=== PATIENT | female | born 1990 | race Caucasian/White ===

== ENCOUNTER 2021-01-28 14:41 | Emergency (ER) | payer OTHER, SELFPAY ==
[2021-01-28] VITALS (21 sets, daily range): BP systolic 115–150; BP diastolic 65–92; PULSE 84–103; RESP 15–28; TEMP 36.7; O2SAT 95–100
--- NOTE | 2021-01-28 14:50 | ECG_ITS ---
Measurements Intervals [place] Rate: 87 P: 36 [place]: 160 QRS: -1 QRSD: 113 T: 6 QT: 366 QTc: 441 Interpretive Statements SINUS RHYTHM INCOMPLETE RIGHT BUNDLE BRANCH BLOCK VOLTAGE CRITERIA FOR LVH BORDERLINE T WAVE ABNORMALITY- ANTERIOR LEADS BASELINE ARTIFACT- I, II, III, AVR, AVL, AVF BORDERLINE ECG Electronically Signed On 01-28-2021 15:46:57 CDT by Fermin West D.O.
--- NOTE | 2021-01-28 15:17 | ED.GENADULT ---
HPI - General Adult General Chief complaint: Dizziness Stated complaint: near syncopy, 6 weeks Time Seen by Provider: 01/28/21 14:46 Source: patient History of Present Illness HPI narrative: Patient is a 30 y/o female complaining of mild dizziness starting about 9:00 AM. She describes her dizziness as a light-headedness sensation. She denies any room spinning. There is no alleviating or exacerbating factor. She has some headache. She states that her BP was 160s/100s earlier. Of note, she is 6 week . Her LMP was 12/09. Related Data Home Medications Medication Instructions Recorded Confirmed No Home Medications 01/28/21 01/28/21 Allergies Allergy/AdvReac Type Severity Reaction Status Date / Time cefaclor [From [facility]] Allergy Rash Verified 01/28/21 14:49 Review of Systems Constitutional: Constitutional: Denies chills, Denies fever(s), Denies headache(s) and Denies weakness Eyes: Eyes: Denies blurry vision ENT: Denies headache(s) and Denies neck pain Cardiovascular: Cardiovascular: Denies chest pain and Denies dyspnea Respiratory: Respiratory: Denies cough and Denies dyspnea Gastrointestinal: Gastrointestinal: Denies abdominal pain, Denies diarrhea, Denies nausea and Denies vomiting Genitourinary: Genitourinary: Denies hematuria and Denies dysuria Musculoskeletal: Musculoskeletal: Denies back pain and Denies neck pain Neurologic: Reports dizziness, Denies headache(s) and Denies weakness Exam Const: General: no acute distress and well developed Orientation/consciousness: oriented to person, oriented to place, oriented to time and patient oriented x3 HENMT: Head: normocephalic Ears: external ears normal General nose exam: Normal external nose present Eyes: General: appearance normal, both eyes and all related structures Conjunctivae: conjunctivae normal Neck: Neck: normal visual inspection and full ROM Chest: Chest palpation & inspection: normal inspection of the chest and no tenderness Resp: Effort & Inspection: normal respiratory effort Auscultation: clear to auscultation bilaterally Cardio: Rate: regular rate Rhythm: regular rhythm GI: GI Palp: No abdominal tenderness and Yes Soft to palpation Skin: General skin exam: normal color and turgor normal Neuro: General: oriented to person, oriented to place, oriented to time and patient oriented x3 Cognition (Neuro): normal cognition Extrem: General: normal to inspection, full ROM and no pedal edema Psych: Appearance: grossly normal Mental Status: mental status grossly normal Affect: normal affect Course Consultations Consultation #1: Discussed with Dr. Burks, who agrees with plan for discharge. Date: 01/28/21 Time: 18:28 Vital Signs Vital signs: Vital Signs Temperature 36.7 C 01/28/21 14:44 Pulse Rate 94 01/28/21 14:44 Respiratory Rate 18 01/28/21 14:44 Blood Pressure 150/87 H 01/28/21 14:44 Pulse Oximetry 98 01/28/21 14:44 Temperature 36.7 C 01/28/21 14:44 Pulse Rate 89 01/28/21 18:36 Respiratory Rate 19 01/28/21 18:36 Blood Pressure 137/92 H 01/28/21 19:01 Pulse Oximetry 95 01/28/21 18:46 Medical Decision Making Vital Signs Vital Signs: Vital Signs Temperature 36.7 C 01/28/21 14:44 Pulse Rate 94 01/28/21 14:44 Respiratory Rate 18 01/28/21 14:44 Blood Pressure 150/87 H 01/28/21 14:44 Pulse Oximetry 98 01/28/21 14:44 Temperature 36.7 C 01/28/21 14:44 Pulse Rate 89 01/28/21 18:36 Respiratory Rate 19 01/28/21 18:36 Blood Pressure 137/92 H 01/28/21 19:01 Pulse Oximetry 95 01/28/21 18:46 Lab Data Result diagrams: 01/28/21 15:15 01/28/21 15:15 Labs: Lab Results 01/28/21 01/28/21 01/28/21 Range/Units 15:15 15:15 16:39 WBC 11.1 H (4.5-10.0) K/mm3 RBC 4.40 (4.2-5.4) M/mm3 Hgb 12.5 (12.0-15.0) g/dL Hct 38.6 (37.0-47.0) % MCV 87.7 (80-100) fl MCH 28.4 (26-34) pg MCHC 32.4
[2021-01-28 15:24] LABS: Basophils Absolute Auto 0.1 K/mm3 (0.0-0.1); Basophils Percent Auto 0.5 % (0.2-1.2); Eosinophils Absolute Auto 0.2 K/mm3 (0-0.3); Eosinophils Percent Auto 1.4 % (0-4.4); Hematocrit 38.6 % (37.0-47.0); Hemoglobin 12.5 g/dL (12.0-15.0); Immature Granulocyte Absolute 0.06 K/mm3 (0.00-0.031); Immature Granulocyte Percent A 0.5 % (0-0.5); Lymphocytes Absolute Auto 2.36 K/mm3 (0.9-3.2); Lymphocytes Percent Auto 21.3 % (18.3-44.2); Mean Corpuscular HGB Conc 32.4 g/dl (32-36); Mean Corpuscular Hemoglobin 28.4 pg (26-34); Mean Corpuscular Volume 87.7 fl (80-100); Mean Platelet Volume 9.9 fl (7.4-10.4); Monocytes Absolute Auto 0.7 K/mm3 (0.1-0.6); Monocytes Percent Auto 6.7 % (2.6-8.5); Neutrophils Absolute Auto 7.7 K/mm3 (1.3-6.7); Neutrophils Percent Auto 69.6 % (45.5-73.1); Platelet Count Result 305 k/mm3 (150-375); Red Cell Distribution Width 15.3 % (11.5-14.5); White Blood Count 11.1 K/mm3 (4.5-10.0)
[2021-01-28 15:45] LABS: Alanine Aminotransferase 21 U/L (4-35); Albumin Level 3.9 g/dL (3.5-5.1); Alkaline Phosphatase 52 U/L (38-126); Anion Gap 8 mmol/L (8-16); Aspartate Amino Transferase 23 U/L (14-36); Bilirubin,Total 0.3 mg/dL (0.2-1.3); Blood Urea Nitrogen 12 mg/dL (7-17); Calcium 8.7 mg/dL (8.4-10.2); Carbon Dioxide 23 mmol/L (22-30); Chloride 104 mmol/L (98-107); Estimated CRCL calculation 182 ml/min; Estimated Glomerular Filt Rate > 60; Glucose 101 mg/dL (65-110); Potassium 3.7 mmol/L (3.4-5.0); Sodium 135 mmol/L (137-145)
[2021-01-28 16:54] LABS: Add Urine Microscopic? YES; Appearance Urine Cloudy (Clear); Bilirubin Urine Negative (Negative); Blood Urine Negative (Negative); Color Urine Yellow (Yellow); Glucose Urine UA Negative (Negative); Ketones Urine Trace mg/dL (Negative); Leukocyte Esterase Ur Negative LEU/UL (Negative); Mucus Urine Rare /lpf; Nitrate Urine Negative (Negative); Protein Urine 1+ mg/dL (Negative); Specific Grav Ur 1.026 (1.001-1.035); Squamous Epithelial Cell Urine Many /hpf (Few); Urobilinogen Urine Negative mg/dL (<2.0); WBC Urine 0-3 /hpf
== END 2021-01-28 19:27 | disposition home or self-care (01) ==
PROVIDERS: Emergency Provider Emergency Medicine
DX: R42 Dizziness and giddiness (principal); I10 Essential (primary) hypertension; I45.10 Unspecified right bundle-branch block; R94.31 Abnormal electrocardiogram [ECG] [EKG]
CPT/HCPCS: 36415; 80053; 81001; 84702; 85025; 93005; 99283

== ENCOUNTER → 2021-04-03 02:13 | Outpatient (CLI) | payer OTHER, SELFPAY ==
[2021-04-03 20:33] LABS: SARS-CoV-2 RNA PCR Positive
== END ==
PROVIDERS: Visit Provider Obstetrics & Gynecology
DX: U07.1 COVID-19 (principal)
CPT/HCPCS: C9803; U0003; U0005

== ENCOUNTER 2021-09-09 06:59 | Inpatient (IN) | payer OTHER, SELFPAY ==
[2021-09-09] VITALS (182 sets, daily range): BP systolic 73–169; BP diastolic 26–91; PULSE 25–118; TEMP 36.6–36.8; O2SAT 82–100; BMI 67.1
--- OUTSIDE RECORDS SUMMARY | 2021-09-09 07:04 | XMS_ITS | Encounter Summary ---
:1990 Author Reason for Visit OB visit Assessment and Plan 1. Chronic hypertension in obstetric co ntext 2. Morbid obesity Discussion Note: None recorded.Patient educational handouts: No information available. Plan of Care Reminders Provider Appointments None recorded. ? ? Lab None recorded. ? ? Referral None recorded. ? ? Procedures None recorded. ? ? Surgeries None recorded. ? ? Imaging None recorded. ? ? Medications Name Start Date ? ? Asprin Ec Low Dose 81 mg tablet,delayed release ? Take 1 tablet every day by oral route. labetalol 200 mg tablet ? Take 2 tablets twice a day by oral route. nifedipine ER 30 mg tablet,extended release 24 hr ? Take 1 tablet every day by oral route. ? Medications Administered None recorded. Vitals Height Weight BMI Blood Pressure 5 ft 4 in 392 lbs 67.3 kg/m2 (1) 165/104 mm[ Hg] (2) 148/82 mm[Hg ] Results Lab Results None recorded. Allergies Code Code System Name Reaction Severity Onset Ceclor ? ? ? Problems Name Status Onset Date Source ? History of SARS-CoV-2 Active 03/05/2021 ? Active 03/13/2021 ? Group B Streptococcus Carrier Active 09/08/2021 ? Uterine Leiomyoma Active ? ? Morbid Obesity Active ? ? Chronic Hypertension in Obstetric Context Active ? ? Procedures Date Name Performed by ? 04/05/2016 Cholecystectomy Information not kimberlyn alcala
--- OUTSIDE RECORDS SUMMARY | 2021-09-09 07:04 | XMS_ITS ---
:1990 Author Care Team Providers Name Role Phone Jeanne Burks Primary Care Provider Unavailable Allergies Code Code System Name Reaction Severity Status Onset Ceclor ? ? Active ? Medications Name Status Start Date Stop Date ? ? Asprin Ec Low Dose 81 mg tablet,delayed release Active ? Not available Take 1 tablet every day by oral route. fluconazole 150 mg tablet Completed ? 2021 labetalol 200 mg tablet Active ? Not avai lable metronidazole 500 mg tablet Completed ? 04/05 nifedipine ER 30 mg tablet,extended release 24 hr Active ? Not available nitrofurantoin monohydrate/macrocrystals 100 mg capsule Complete d ? 04/18/2021 Active ? Not available Problems Name Status Onset Date Source ? History of SARS-CoV-2 Active 03/05/2021 ? Active 03/13/2021 ? Group B Streptococcus Carrier Active 09/08/2021 ? Uterine Leiomyoma Active ? ? Morbid Obesity Active ? ? Chronic Hypertension in Obstetric Context Active ? ? Procedures Date Name Performed by ? 04/05/2016 Cholecystectomy Information not avai labdarrell 04/05/1995 Removal of Silastic Tubes from Ear Infor mation not available 03/13/2021 US, Obstetric, Nuchal Translucency [facility] [facility] [address] [place] [address] ([address]) 05/07/2021 US, Obstetric, 2Nd or 3Rd Trimester Rupali winter [address] [place] [address] ([address]) 05/07/2021
--- OUTSIDE RECORDS SUMMARY | 2021-09-09 07:04 | XMS_ITS | Encounter Summary ---
[...] BMI Blood Pressure 5 ft 4 in 391 lbs 67.1 kg/m2 (1) 165/89 mm[H g] (2) 140/80 mm[Hg ] Results Lab Results None recorded. [...]
--- OUTSIDE RECORDS SUMMARY | 2021-09-09 07:04 | XMS_ITS | Encounter Summary ---
:1990 Author Reason for Visit OB visit OB [id number] EDC 09/23/2021 LMP 12/17/2020 Assessment and Plan 1. Routine care 2. -induced hypertension ? CBC w/ auto diff ? CMP, serum or plasma ? uric acid, serum or plasma Discussion Note: None recorded.Patient educational handouts: No information available. Plan of Care Reminders Provider Appointments None recorded. ? ? Lab CBC W/ Auto Diff 07/21/2021 [facility] (Lab) ? CMP, Serum or Plasma 07/21/2021 [facility] (Lab) ? Uric Acid, Serum or Plasma 07/21/2021 [facility] (Lab) Referral None recorded. ? ? Procedures None [...] BMI Blood Pressure 5 ft 4 in 393 lbs 67.5 kg/m2 (1) 163/92 mm[H g] (2) 144/88 mm[Hg ] Results Lab Results Date Name Specimen Result Interpretation Description Value Range Status Address ? 07/21/2021 CBC W/ ? Wbc 9.6 3.6-10.2 Final [facility]: Auto Diff
--- OUTSIDE RECORDS SUMMARY | 2021-09-09 07:04 | XMS_ITS | Encounter Summary ---
:1990 Author Reason for Visit OB visit Assessment and Plan Assessment Note Patient is ___weeks . Discussed plan. 1. Routine care Discussion Note: None recorded.Patient educational handouts: No [...] BMI Blood Pressure 5 ft 4 in 395 lbs 67.8 kg/m2 (1) 151/89 mm[H g] (2) 151/91 mm[Hg ] Results Lab Results None recorded. [...]
--- OUTSIDE RECORDS SUMMARY | 2021-09-09 07:04 | XMS_ITS | Encounter Summary ---
[...] BMI Blood Pressure 5 ft 4 in 394 lbs 67.6 kg/m2 (1) 157/92 mm[H g] (2) 144/87 mm[Hg ] Results Lab Results None recorded. [...]
--- NOTE | 2021-09-09 07:57 | PM.IMHP ---
H&P: HPI History of Present Illness Date/Time: 09/09/21 07:57 Chief Complaint: induction of labor Narrative: Roaslie is a 31yo at 38w with MO and cHTN for IOL. GBS pos. Denies contractions today. Good FM. Most Recent Cardiac Tests: No Data to Display Review of Systems Review of Systems: All systems reviewed & are unremarkable except as noted in HPI and below PMFSH Family History Family History (Updated 08/25/21 @ 08:35 by Jeane Ramirez RN) Father Obesity Diabetes mellitus Mother Obesity Social History Social History Substance use: never Spiritual care concerns: No Meds Home Medications and Allergies Home Medications Medication Instructions Recorded Confirmed Type aspirin 81 mg tablet,delayed 81 mg PO DAILY 08/25/21 09/09/21 History release (Mau Low Dose Aspirin) labetalol 200 mg tablet 200 mg PO Q12H 08/25/21 09/09/21 History nifedipine 30 mg tablet,extended 30 mg PO DAILY 08/25/21 09/09/21 History release 24 hr (Procardia XL) prenat.vits,kathy,owk-ceqj-cfagn 1 tablet PO DAILY 08/25/21 09/09/21 History Allergies Allergy/AdvReac Type Severity Reaction Status Date / Time [facility] Allergy Rash Verified 08/25/21 08:31 Exam Const: General: no acute distress Resp: Effort & Inspection: normal respiratory effort Auscultation: clear to auscultation bilaterally Cardio: Rate: regular rate Rhythm: regular rhythm GI: GI Palp: Yes Soft to palpation Extrem: General: normal to inspection Assessment and Plan Additional Plan Here for induction of labor-pitocin GBS pos FHT category 1
[2021-09-09 08:36] LABS: Basophils Absolute Auto 0.1 K/mm3 (0.0-0.1); Basophils Percent Auto 0.4 % (0.2-1.2); Eosinophils Absolute Auto 0.1 K/mm3 (0-0.3); Eosinophils Percent Auto 1.1 % (0-4.4); Hematocrit 37.3 % (37.0-47.0); Hemoglobin 11.5 g/dL (12.0-15.0); Immature Granulocyte Absolute 0.09 K/mm3 (0.00-0.031); Immature Granulocyte Percent A 0.8 % (0-0.5); Lymphocytes Absolute Auto 1.69 K/mm3 (0.9-3.2); Mean Corpuscular HGB Conc 30.8 g/dl (32-36); Mean Corpuscular Hemoglobin 28.3 pg (26-34); Mean Corpuscular Volume 91.9 fl (80-100); Mean Platelet Volume 10.1 fl (7.4-10.4); Monocytes Percent Auto 8.6 % (2.6-8.5); Neutrophils Absolute Auto 8.3 K/mm3 (1.3-6.7); Neutrophils Percent Auto 74.1 % (45.5-73.1); Platelet Count Result 259 k/mm3 (150-375); Red Blood Count 4.06 M/mm3 (4.2-5.4); Red Cell Distribution Width 15.6 % (11.5-14.5); White Blood Count 11.3 K/mm3 (4.5-10.0)
[2021-09-09] MEDS: LACTATED RINGERS 1,000 ML 125 ML IV CONT ×4 (08:36→22:33)
[2021-09-09] MEDS: AMPICILLIN 2 GM/NS 100 ML 2 GM/100 ML BAG IVPB (08:36)
[2021-09-09] MEDS: OXYTOCIN 30 UNITS/NS 500 ML 30 UNITS/500 ML BAG IV CONT (08:36)
[2021-09-09 08:44] LABS: Uric Acid 2.8 mg/dL (2.5-7.5)
[2021-09-09 08:48] LABS: Alanine Aminotransferase 14 U/L (6-35); Albumin Level 3.6 g/dL (3.5-5.1); Alkaline Phosphatase 96 U/L (38-126); Anion Gap 8 mmol/L (8-16); Aspartate Amino Transferase 17 U/L (14-36); Bilirubin,Total 0.2 mg/dL (0.2-1.3); Blood Urea Nitrogen 8 mg/dL (7-17); Calcium 8.8 mg/dL (8.4-10.2); Carbon Dioxide 20 mmol/L (22-30); Chloride 106 mmol/L (98-107); Estimated CRCL calculation 225 ml/min; Estimated Glomerular Filt Rate > 60; Glucose 90 mg/dL (65-110); Sodium 134 mmol/L (137-145)
--- NOTE | 2021-09-09 09:36 | WPDANESEPP ---
Anes - Eval Pre Procedure Procedure: Labor epidural Date/Time: 09/09/21 09:36 Surgeon: Dana Preop Diagnosis: Abd pain with contractions Pre Op Diagnosis: IOL Patient Data Age: 31 Gender: F Height: 1.63 m Weight: 177.5 kg Last Vital Signs Temp 98.2 F 09/09/21 08:30 Pulse 81 09/09/21 09:30 BP 147/79 H 09/09/21 09:30 O2 Del Method Room Air 09/09/21 08:08 Allergies Allergy/AdvReac Type Severity Reaction Status Date / Time cefaclor [From [facility]] Allergy Rash Verified 08/25/21 08:31 Home Medications Medication Instructions Recorded Confirmed Type aspirin 81 mg tablet,delayed 81 mg PO DAILY 08/25/21 09/09/21 History release (Mau Low Dose Aspirin) labetalol 200 mg tablet 200 mg PO Q12H 08/25/21 09/09/21 History nifedipine 30 mg tablet,extended 30 mg PO DAILY 08/25/21 09/09/21 History release 24 hr (Procardia XL) prenat.vits,kathy,bhj-glih-xgfhs 1 tablet PO DAILY 08/25/21 09/09/21 History Laboratory Tests 09/09/21 09/09/21 09/09/21 08:25 08:25 08:25 WBC 11.3 K/mm3 H K/mm3 (4.5-10.0) RBC 4.06 M/mm3 L M/mm3 (4.2-5.4) Hgb 11.5 g/dL L g/dL (12.0-15.0) Hct 37.3 % % (37.0-47.0) MCV 91.9 fl fl (80-100) MCH 28.3 pg pg (26-34) MCHC 30.8 g/dl L g/dl (32-36) RDW 15.6 % H % (11.5-14.5) Plt Count 259 k/mm3 k/mm3 (150-375) MPV 10.1 fl fl (7.4-10.4) Immature Gran % (Auto) 0.8 % H % (0-0.5) Neut % (Auto) 74.1 % H % (45.5-73.1) Lymph % (Auto) 15.0 % L % (18.3-44.2) Floyd % (Auto) 8.6 % H % (2.6-8.5) Eos % (Auto) 1.1 % % (0-4.4) Baso % (Auto) 0.4 % % (0.2-1.2) Lymph # (Auto) 1.69 K/mm3 K/mm3 (0.9-3.2) Floyd # (Auto) 1.0 K/mm3 H K/mm3 (0.1-0.6) Eos # (Auto) 0.1 K/mm3 K/mm3 (0-0.3) Baso # (Auto) 0.1 K/mm3 K/mm3 (0.0-0.1) Abs Immat Gran (auto) 0.09 K/mm3 H K/mm3 (0.00-0.031) Absolute Neuts (auto) 8.3 K/mm3 H K/mm3 (1.3-6.7) Absolute Nucleated RBC 0.0 K/mm3 K/mm3 (0.0-0.012) Nucleated RBC % 0.0 % % (0.0-0.2) Sodium Potassium Chloride Carbon Dioxide Anion Gap BUN Creatinine Estim Creat Clear Calc Estimated GFR Glucose Uric Acid Calcium Total Bilirubin AST ALT Alkaline Phosphatase Total Protein Albumin RPR Pending Blood Type A Positive Antibody Screen Negative 09/09/21 09/09/21 08:29 08:29 WBC RBC Hgb Hct MCV MCH MCHC RDW Plt Count MPV Immature Gran % (Auto) Neut % (Auto) Lymph % (Auto) Floyd % (Auto) Eos % (Auto) Baso % (Auto) Lymph # (Auto) Floyd # (Auto) Eos # (Auto) Baso # (Auto) Abs Immat Gran (auto) Absolute Neuts (auto) Absolute Nucleated RBC Nucleated RBC % Sodium 134 mmol/L L mmol/L (137-145) Potassium 4.0 mmol/L mmol/L (3.4-5.0) Chloride 106 mmol/L mmol/L (98-107) Carbon Dioxide 20 mmol/L L mmol/L (22-30) Anion Gap 8 mmol/L mmol/L (8-16) BUN 8 mg/dL mg/dL (7-17) Creatinine 0.50 mg/dL L mg/dL (0.7-1.0) Estim Creat Clear Calc 225 ml/min ml/min Estimated GFR > 60 (59 - ) Glucose 90 mg/dL mg/dL (65-110) Uric Acid 2.8 mg/dL mg/dL (2.5-7.5) Calcium 8.8 mg/dL mg/dL (8.4-10.2) Total Bilirubin 0.2 mg/dL mg/dL (0.2-1.3) AST 17 U/L U/L (14-36) ALT 14 U/L U/L (6-35) Alkaline Phosphatase 96 U/L U/L (38-12
[2021-09-09] MEDS: AMPICILLIN 1 GM/NS 50 ML 1 GM/50 ML BAG IVPB ×3 (12:30→20:46)
[2021-09-09] MEDS: PHENYLEPHRINE 1,000 MCG/10 ML SYRINGE 100 MCG IV PUSH (13:09)
[2021-09-09 14:15] LABS: Rapid Plasma Reagin Non-Reactive (NonReactive)
[2021-09-09] MEDS: CALCIUM CARBONATE (TUMS) 500 MG (200 MG ELEMENTAL) PO (14:50)
--- NOTE | 2021-09-09 18:10 | PM.OBPNLAB ---
Pain Control Date/time seen: 09/09/21 18:10 Pain control: epidural Pelvic Exam Dilation (cm): 3 Effacement (%): 50 station: -3 Amniotic membrane status: Ruptured Comments: copious clear fluid, iupc placed Contractions Contraction pattern: Regular Contraction intensity: Moderate Status status: Category l Assessment and Plan Assessment: induction ongoing Plan: continuous present management Comments: continue pitocin. arom copious clear
[2021-09-10] VITALS (37 sets, daily range): BP systolic 122–158; BP diastolic 49–82; PULSE 59–107; RESP 12–18; TEMP 36.4–37.1; O2SAT 97–100
[2021-09-10] MEDS: AMPICILLIN 1 GM/NS 50 ML 1 GM/50 ML BAG IVPB (00:35)
--- NOTE | 2021-09-10 01:41 | PM.OBPRVD ---
OB - Delivery Note Procedure Delivery date: 09/10/21 Procedure: Events: Chronic Hypertension Induction method: AROM and Per Pitocin Protocol Delivery monitor: External FHT and Internal Uterine Route of delivery: Laceration Description: None Specimen: No Quantitative Blood Loss (ml): 59 Anesthesia type: Epidural Disposition: Floor Narrative: With adequate expulsive efforts by the mother, the baby's head was delivered OA. The baby's anterior shoulder was delivered under the pubic symphysis without difficulty. The posterior shoulder and the rest of the baby delivered without difficulty. The infant was placed on the mothers chest and suctioned and stimulated. The cord was clamped and cut after 30 seconds. Mother and baby both stable. Baby Date of : 09/10/21 Time of : 01:25 Weeks of gestation at delivery: 38 Infant gender: Male Weight (pounds): 7 Weight (ounces): 15 presentation: vertex Placenta delivery description: Spontaneous Cord Vessel Description: 3 Vessels, Nuchal Cord and True Knot score one minute: 8 score five minutes: 9
[2021-09-10] MEDS: OXYTOCIN 30 UNITS/NS 500 ML 30 UNITS/500 ML BAG 125 UNITS IV CONT (01:48)
[2021-09-10] MEDS: IBUPROFEN 600 MG TABLET PO (03:40)
[2021-09-10] MEDS: BENZOCAINE 20% AER SPR (*SP) 56 GM CAN 1 SPRAY TOPICAL (04:01)
[2021-09-10] MEDS: WITCH HAZEL 40 PADS 1 PAD TOPICAL (04:01)
--- NOTE | 2021-09-10 04:12 | ADMGEN ---
This patient, Rosalie Robledo, was admitted to OB 2nd Floor Room 281-00. Patient/family oriented to hospital policies and general routines including ID bracelet, bed and alarms, visiting hours, pain management, procedures, bathroom and other care routines, personal items, smoking policy, room service/diet, and visiting hours. Information on how to activate the Rapid Response Team has been discussed. Patient/Family are encouraged to report perceived risks to care and to ask questions if they do not understand what they are told or what they should do.
--- NOTE | 2021-09-10 09:17 | WPDANLDPN2 ---
Anes-Prog Note L&D Date/Time: 09/10/21 09:17 Comfortable throughout: labor and delivery Neuraxial method: epidural Epidural/Spinal procedure site: clean & non-tender Neuro status: Neuro function grossly intact. Vital Signs: Last Vital Signs Temp 36.6 C 09/10/21 07:00 Pulse 60 09/10/21 07:00 Resp 12 09/10/21 07:00 BP 130/82 09/10/21 07:00 Pulse Ox 97 09/10/21 07:00 O2 Del Method Room Air 09/10/21 04:15 Pain score (VAS): 2 I/O: Intake & Output 09/09/21 09/10/21 09/10/21 23:59 07:59 15:59 Intake Total 2200 750 Output Total 249 Balance 2200 501 Patient feedback: Patient satisfied with anesthetic care.
[2021-09-10] MEDS: LABETALOL HCL 100 MG TABLET 200 MG PO ×2 (09:57→21:41)
[2021-09-10] MEDS: DOCUSATE SODIUM 100 MG CAPSULE PO (09:57)
[2021-09-10] MEDS: MULTIVIT/MIN/PREN/FOL AC/IRON TABLET 1 TAB PO (09:57)
[2021-09-11] VITALS (7 sets, daily range): BP systolic 135–144; BP diastolic 71–89; PULSE 70–85; RESP 16–18; TEMP 36.3–37.1; O2SAT 97–98
[2021-09-11 05:11] LABS: Hematocrit 32.3 % (37.0-47.0); Hemoglobin 10.4 g/dL (12.0-15.0)
--- NOTE | 2021-09-11 09:01 | PM.OBPNVD ---
OB - PN: Subj Subjective Date/time seen: 09/11/21 09:01 Patient comments: no complaints, pain well controlled, incisional pain, tolerating diet and flatus present OB - PN: Obj Data Labs CBC & Chem 7: 09/11/21 03:48 09/09/21 08:29 Labs: Laboratory Results - last 24 hr 09/11/21 03:48 Hgb 10.4 L Hct 32.3 L OB - PN A/P Plan day: 1 Plan: routine care Comments: No problems, routine care Time Spent With Patient Time: Total time spent is greater than 50% in coordination of care (as documented) at patient's floor/unit and/or counseling patient: Exam Const: General: comfortable, no acute distress and alert Resp: Effort & Inspection: normal respiratory effort Auscultation: no crackles, no rales and no rhonchi Cardio: Rate: regular rate Heart sounds: no click, no murmurs and no rubs GI: Inspection: non-distended GI Palp: No Tenderness to palpation present (GI) Auscultation: normal bowel sounds Other: Incision - CDI Extrem: General: normal to inspection, no pedal edema and no calf tenderness
[2021-09-11] MEDS: MULTIVIT/MIN/PREN/FOL AC/IRON TABLET 1 TAB PO (09:13)
[2021-09-11] MEDS: LABETALOL HCL 100 MG TABLET 200 MG PO ×2 (09:13→21:20)
[2021-09-11] MEDS: DOCUSATE SODIUM 100 MG CAPSULE PO (09:15)
[2021-09-11] MEDS: NIFEdipine 30 MG TAB.ER.24 PO (09:16)
[2021-09-11] MEDS: TETANUS,DIPHTHERIA,AC PERTUSSIS ADULT (0.5 ML) BOOSTRIX IM (12:59)
--- NOTE | 2021-09-11 13:35 | PC.NURSE ---
1010 note; mother reports baby did nurse several times through the night; last breast feeding reported at 0730 today, 15 minutes; At 0900 she reports an attempt to breast fed with no latch, then fed about an ounce of formula at 1000. She reports that she did not pump through the night. Encouraged her to continue to try to put to breast; if no latch, important for her to pump. Reviewed importance of 8-12 breast feedings a day, and pumping at those feedings where baby does not latch. Reviewed importance of pain free breast feeding, 0-2 on 1-10 scale, and same with pumping. Mother has a [employer]inoh pump at home that she purchased. As discussed with her yesterday, she was encouraged to reach out to her Insurance company about provision of a breast pump. Also suggested that mother could rent a hospital grade pump from the station to use until her Ins. Company provides one, to help better establish her milk supply. She voiced understanding. Reviewed breast care and referred to Mother-Baby Guide for home reference. Mother seemed to be attentive and voiced understanding of information shared.
--- NOTE | 2021-09-12 06:06 | PM.OBPNVD ---
OB - PN: Subj Subjective Date/time seen: 09/12/21 06:06 Patient comments: no complaints baby status: doing well [place] feeding status: exclusively breast feeding OB - PN: Obj Data Labs CBC & Chem 7: 09/11/21 03:48 09/09/21 08:29 OB - PN A/P Plan day: 2 Plan: routine care and discharge home Comments: circ today, consented Time Spent With Patient Time: Total time spent is greater than 50% in coordination of care (as documented) at patient's floor/unit and/or counseling patient: Time with patient: less than 15 minutes Exam Narrative: NAD abdomen soft, nontender, fundus firm below the umbilicus Extremities nontender, 1+ edema
--- NOTE | 2021-09-12 06:09 | P.DS_ITS ---
DS: Admitting Diagnosis Discharge Date 09/12/21 Admitting Diagnosis cHTN, IUP at 38w DS: Discharge Diagnosis Discharge Diagnosis (1) , delivered: Code(s): O80 - Encounter for full-term uncomplicated delivery Status: Acute Plan DC home DS: Summary Hospital Course Hospital Course: Rosalie was admitted for induction of labor for cHTN. Her delivery and pp course was uncomplicated. Status at Discharge Functional status at discharge: independent ambulation Time Spent with Patient Time attestation: Total time spent providing and/or coordinating discharge services: Exam Narrative: NAD abdomen soft, appropriately tender Ext non tender, 1+ edema Discharge Plan Discharge Attending physician on discharge: Jeanne Burks Discharging Clinician: Jeanne Burks Anticipated Discharge Date/Time: 09/12/21 06:07 Patient Disposition: Home, Self-Care Activity: pelvic rest Diet: regular Discharge Instructions: ibuprofen 600mg every 6 hours as needed Patient Instructions: Antibiotic Form Stand Alone Forms: General Discharge Information Follow-up/Referrals: Jeanne Burks MD [Physician] - 1 Week Discharge Medications: Continued nifedipine [Procardia XL] 30 mg Tablet Extended Release 24 Hr 30 mg PO DAILY labetalol 200 mg Tablet 200 mg PO Q12H #2 Tablet 1 tablet PO DAILY Discontinued aspirin [Mau Low Dose Aspirin] 81 mg Tablet,Delayed Release (Dr/Ec) 81 mg PO DAILY Date of admission: 09/09/21 06:59 Primary Care Provider: PHYSICIAN,GROUP LEADER [employer]ING Admitting Provider: Christian Cortez Attending physician on admission: Christian Cortez Condition: Stable
[2021-09-12] MEDS: DOCUSATE SODIUM 100 MG CAPSULE PO (07:55)
[2021-09-12] MEDS: MULTIVIT/MIN/PREN/FOL AC/IRON TABLET 1 TAB PO (07:55)
[2021-09-12 08:00] VITALS: BP 141/88; PULSE 75; PULSE 80; RESP 18; TEMP 36.7; O2SAT 96
[2021-09-12] MEDS: NIFEdipine 30 MG TAB.ER.24 PO ×2 (09:10→09:21)
[2021-09-12 09:20] VITALS: PULSE 80
[2021-09-12] MEDS: LABETALOL HCL 100 MG TABLET 200 MG PO (09:20)
[2021-09-13 12:01] VITALS: BP 154/65; PULSE 78; RESP 22; O2SAT 100
== END 2021-09-12 11:55 | disposition home or self-care (01) | DRG 807 ==
LOC: ANHOB2 09-12 08:42 → ANHLDR 09-15 09:51 → ANHOB2 09-15 09:51
PROVIDERS: Admitting Provider Obstetrics & Gynecology; Visit Provider Obstetrics & Gynecology
DX: O10.92 Unspecified pre-existing hypertension complicating childbirth (principal); Z37.0 Single live birth; O99.824 Streptococcus B carrier state complicating childbirth; O99.214 Obesity complicating childbirth; E66.01 Morbid (severe) obesity due to excess calories; O69.1XX0 Labor and delivery complicated by cord around neck, with compression, not applicable or unspecified; O76 Abnormality in fetal heart rate and rhythm complicating labor and delivery; Z3A.38 38 weeks gestation of pregnancy
CPT/HCPCS: 36415; 80053; 84550; 85014; 85018; 85025; 86592; 86850; 86900; 86901; 90715; A9270; J0290; J2370; J2590; J2795; J7120